=== PATIENT | female | born 1960 | race Caucasian/White ===

== ENCOUNTER 2017-08-13 11:01 | Emergency (ER) | payer MEDICAID ==
[~2017-08-13] VITALS: Ht 154.9 cm; Wt 64.0 kg
[2017-08-13 11:03] VITALS: BP 183/86; PULSE 70; RESP 16; TEMP 97.6; O2SAT 96
--- NOTE | 2017-08-13 11:42 | PD ---
HPI Chief Complaint: Musculoskeletal Complaint Time Seen by Provider: 11:10 Travel History International Travel<30 days: No Contact w/Intl Traveler<30days: No Traveled to known affect area: No History of Present Illness HPI 87-year-old female presents to the emergency Department with multiple complaints. Her complaints consist of left lower back pain 2 months that radiates down the back of her leg, a pulsation to her right biceps area that she 's noticed in the last 2-3 days, and left knee pain times one year. Denies new or recent injuries. Denies paresthesias, loss of sensation, decreased range of motion, decreased strength to all extremities. Denies encopresis, incontinence , saddle anesthesia use. Denies IV drug use or cancer. Denies fevers, vomiting , abdominal pain, dysuria, change in stool. Has not taken any medication to try any treatments to alleviate her symptoms. Back pain and knee pain is worse when she walks and better at rest. Back pain is also worse when she sits down. No known allergies. Primary care provider is Dr. Gibson. Denies significant past medical history. PFSH Past Medical History Hx Anticoagulant Therapy: No Social History Tobacco Use: No Allergies-Medications (Allergen,Severity, Reaction): Coded Allergies: No Known Allergies (Unverified , 08/13/17) Reported Meds & Prescriptions Reported Meds & Active Scripts Active Walker/Adult/Folding (Device) 1 Mis Mis Ea .ROUTE DIRECTED Robaxin (Methocarbamol) 500 Mg Tab 500 Mg PO QID PRN Ibuprofen 800 Mg Tab 800 Mg PO Q6HR PRN Review of Systems Except as stated in HPI: all other systems reviewed are Neg Physical Exam Narrative GENERAL: Well-nourished, well-developed [place] female patient, in no acute distress; afebrile, nontoxic-appearing SKIN: Warm and dry. Pulsation visualized and palpated noted to right biceps area; nares without erythema, edema, ecchymosis. Right upper exudate supple and nontender 2+ radial pulses and sensory intact without erythema or edema. HEAD: Atraumatic. Normocephalic. EYES: Pupils equal and round. No scleral icterus. No injection or drainage. ENT: Mucosa pink and moist. Airway patent. NECK: Trachea midline. CARDIOVASCULAR: Regular rate and rhythm. No murmur patient. RESPIRATORY: No accessory muscle use. Breath sounds clear and equal bilaterally. No retractions or tachypnea. GASTROINTESTINAL: Abdomen soft, non-tender, nondistended. Positive bowel sounds. No hepato-splenomegaly, or palpable masses. No guarding. MUSCULOSKELETAL: Left knee is nonedematous, nonerythematous and without ecchymosis; with flexion to 90; joint stable with negative drawer test; patient ambulatory in the affected extremity with a limp. Bilateral lower extremities supple and non-tense with 2+ pedal pulses and sensory intact; with full range of motion and 5/5 strength. 2+ DTRs bilaterally. Active dorsiflexion and extension of bilateral feet. Left straight leg raise is positive for low back pain. Sitting up in bed at 90. No obvious deformities. No clubbing. No cyanosis. No edema. BACK: No midline point tenderness on palpation of the lumbar spine. Tenderness on palpation of left lumbar iliosacral area. No obvious deformities. NEUROLOGICAL: Awake and alert. Oriented 3. No obvious cranial nerve deficits. Motor grossly within normal limits. Normal speech. Moves all extremities. 5/5 strength to all extremities. Sensory intact. PSYCHIATRIC: Appropriate mood and affect; insight and judgment normal. Data Data Last Documented VS Vital Signs Date Time Temp Pulse Resp B/P (MAP) Pulse Ox O2 Delivery O2 Flow Rate FiO2 08/13/17 11:03 97.6 70 16 183/86 (118) 96 Orders Orders Ibuprofen (Motrin) (08/13/17 11:45) Methocarbamol (Robaxin) (08/13/17 11:45) Ed Discharge Order (08/13/17 11:50) [facility] Medical Decision Making Medical Screen Exam Complete: Yes Emergency Medical Condition: Yes Medical Record Reviewed: Yes Differential Diagnosis Arthritis, sciatica, low back pain, visual pulse of arm Narrative Course 57-year-old female physical examination consistent with low back pain with left- sided sciatica, muscle spasms of the back, left knee pain. Robaxin and ibuprofen administered in the ER. Haile bandage to left knee. I do not suspect fracture, dislocation of the knee and feel that imaging is not necessary at this time. Robaxin, ibuprofen, Walker prescribed for home. Instructed patient to follow up with orthopedic surgeon. Instructed patient to follow up with primary care provider. Patient verbalizes understanding and agreement with treatment plan. Patient is medically cleared and stable for discharge. Discussed reasons to return to the emergency department. Patient agrees with treatment plan. The patients vital signs are stable and the patient is stable for outpatient follow-up and treatment. Patient discharged home, stable and in no acute distress. Diagnosis Primary Impression: Low back pain with left-sided sciatica Qualified Codes: M54.42 - Lumbago with sciatica, left side Additional Impressions: Muscle spasm of back Left knee pain Qualified Codes: M25.562 - Pain in left knee Referrals: Hand Surgeon Orthopaedic Surgeon Primary Care Physician Patient Instructions: Carpal Tunnel Syndrome (DC), Cervical Radiculopathy (ED) , General Instructions, Knee Pain (ED), Muscle Spasm (ED) Additional Instructions: Tylenol or ibuprofen as needed and as directed to reduce pain and inflammation Rest, ice, compress, and elevate extremity to decrease pain and inflammation Knee brace for support Walker/cane for support Avoid aggravating activity; increase activity as tolerated Follow-up with primary care provider Follow-up with orthopedics Return to the emergency department immediately with worsening symptoms Tylenol or ibuprofen as directed and as needed for pain Robaxin as prescribed and as needed for muscle spasms Heating pad and/or ice to affected area to reduce pain Avoid aggravating activities; increase activity as tolerated Follow-up with primary care provider Return to emergency department immediately with worsening of symptoms Wrist splint for support; can use at night while sleeping Avoid sleeping on your hands to help ease pain and numbness in your wrist and hand Rotate your wrist and stretch your palms and fingers Take a pain reliever, such as Advil, Motrin, ibuprofen, Aleve as needed and as directed Follow-up with primary care provider Return to the emergency department immediately with worsening of symptoms Med/Other Pt SpecificInfo: Prescription(s) given Scripts Walker/Adult/Folding (Walker/Adult/Folding) 1 Mis Mis EA .ROUTE DIRECTED, #1 0 Refills Prov: Michelle Andrade [employer]ING [employer] 08/13/17 Methocarbamol (Robaxin) 500 Mg Tab 500 MG PO QID Y for MUSCLE SPASM, #30 TAB 0 Refills Prov: Michelle Andrade [employer]ING [employer]PER[employer] 08/13/17 Ibuprofen (Ibuprofen) 800 Mg Tab 800 MG PO Q6HR Y for PAIN, #30 TAB 0 Refills Prov: Michelle Andrade [employer]ING [employer]PER[employer] 08/13/17 Disposition: 01 DISCHARGE HOME Condition: Stable Michelle Andrade Aug 13, 2017 11:42
[2017-08-13] MEDS ORDERED: IBUPROFEN 800 MG TAB PO ONE (11:45)
[2017-08-13] MEDS ORDERED: METHOCARBAMOL 500 MG TAB PO ONE (11:45)
[2017-08-13] MEDS ORDERED: IBUP1TAB7 PO (11:49)
[2017-08-13] MEDS ORDERED: WALKER/ADULT/FO1 MIS (11:49)
[2017-08-13] MEDS ORDERED: ROBA500T PO (11:49)
== END 2017-08-13 12:07 | disposition home or self-care (01) ==
LOC: NEPD 11:01
DX: M54.42 Lumbago with sciatica, left side (principal); M62.830 Muscle spasm of back; M25.562 Pain in left knee
CPT/HCPCS: 99283